=== PATIENT | female | born 1930 | race Caucasian/White ===

== ENCOUNTER 2016-02-27 13:18 | Observation (INO) | payer MEDICARE ==
[~2016-02-27] VITALS: Ht 165.1 cm; Wt 59.0 kg
[2016-02-27] VITALS (10 sets, daily range): BP systolic 164–214; BP diastolic 74–111; PULSE 47–68; RESP 17–22; TEMP 97.8–98.3; O2SAT 95–100
[~2016-02-27 13:18] MED LIST: CIPR500T4 PO; LEVO25TA36 PO; LISI10TA PO; METO25 PO
[2016-02-27] MEDS ORDERED: LEVO88TA2 PO (13:38)
[2016-02-27] MEDS ORDERED: XARE20TA PO (13:38)
[2016-02-27] MEDS ORDERED: COMB0.2S RIGHT EYE (13:38)
[2016-02-27] MEDS ORDERED: LISI10TA3 PO (13:38)
[2016-02-27] MEDS ORDERED: SODIUM CHLORIDE 0.9% FLUSH 5 ML FLUSH IVF PRN ×2 (13:45→17:30)
[2016-02-27 14:13] LABS: AUTOMATED NEUTROPHIL # 3.7 TH/MM3 (1.8-7.7); BASOPHIL # 0.1 TH/MM3 (0-0.2); BASOPHIL % 1.4 % (0.0-2.0); EOSINOPHIL # 0.2 TH/MM3 (0-0.4); HEMATOCRIT 44.8 % (35.0-46.0); HEMO FLAGS DIFF FINAL; LYMPH % 29.9 % (9.0-44.0); LYMPHOCYTE # 1.9 TH/MM3 (1.0-4.8); MEAN CELL VOLUME 90.4 FL (80.0-100.0); MEAN CORPUSCULAR HEMOGLOBIN 29.8 PG (27.0-34.0); MONO % 7.9 % (0.0-8.0); NEUT % 57.8 % (16.0-70.0); PLATELET COUNT 230 TH/MM3 (150-450); RED BLOOD COUNT 4.96 MIL/MM3 (4.00-5.30); RED CELL DISTRIBUTION WIDTH 14.6 % (11.6-17.2); WHITE BLOOD COUNT 6.5 TH/MM3 (4.0-11.0)
--- NOTE | 2016-02-27 14:14 | RADRPT ---
EXAM DATE/TIME: 02/27/2016 13:47 [facility] COMPARISON: No previous studies available for comparison. INDICATIONS : Syncope. MEDICAL HISTORY : Hypertension. A-fib. SURGICAL HISTORY : None. ENCOUNTER: Initial ACUITY: 1 day PAIN SCORE: 0/10 LOCATION: Bilateral chest FINDINGS: A single view of the chest demonstrates the lungs to be symmetrically aerated without evidence of mas s, infiltrate or effusion. The cardiomediastinal contours are unremarkable. Osseous structures are intact. CONCLUSION: No acute disease. Arian Oneal MD on February 27, 2016 at 14:13 Board Certified Radiologist. This report was verified electronically.
[2016-02-27 14:20] LABS: APTT (PATIENT) 25.3 SEC (24.3-30.1); PROTHROMBIN TIME - PATIENT 11.1 SEC (9.8-11.6)
--- NOTE | 2016-02-27 14:23 | RADRPT ---
EXAM DATE/TIME: 02/27/2016 14:09 [facility] COMPARISON: No previous studies available for comparison. INDICATIONS : Episode of slurred speech, dizziness and nausea today. RADIATION DOSE: 31.66 CTDIvol (mGy) MEDICAL HISTORY : Carcinoma, colon. Hypertension. SURGICAL HISTORY : Tonsillectomy. Hysterectomy. ENCOUNTER: Initial ACUITY: 1 day PAIN SCALE: 0/10 LOCATION: Bilateral head TECHNIQUE: Multiple contiguous axial images were obtained of the head. Using automated exposure control and adj ustment of the mA and/or kV according to patient size, radiation dose was kept as low as reasonably a chievable to obtain optimal diagnostic quality images. FINDINGS: There is mild atrophy and patchy periventricular white matter disease. No signs of intracranial hemor rhage, mass or acute infarct. No fractures. CONCLUSION: No acute disease. Arian Oneal MD on February 27, 2016 at 14:21 Board Certified Radiologist. This report was verified electronically.
[2016-02-27 14:24] LABS: ANION GAP 7 MEQ/L (5-15); AST (GOT) 10 U/L (15-37); BICARBONATE 28.2 MEQ/L (21.0-32.0); BLOOD UREA NITROGEN 13 MG/DL (7-18); CHLORIDE 106 MEQ/L (98-107); GLOMERULAR FILTRATION RATE 58 ML/MIN (>89); POTASSIUM 3.6 MEQ/L (3.5-5.1); SODIUM (NA) 141 MEQ/L (136-145)
[2016-02-27 14:41] LABS: ALKALINE PHOSPHATASE 77 U/L (45-117); ALT (GPT) 17 U/L (10-53); TOTAL BILIRUBIN ADULT 0.6 MG/DL (0.2-1.0)
[2016-02-27 14:55] LABS: CREATINE KINASE 45 U/L (26-192)
[2016-02-27] MEDS ORDERED: ASPIRIN 325 MG TAB PO ONE (15:45)
--- NOTE | 2016-02-27 15:59 | PD ---
HPI Chief Complaint: Neuro Symptoms/ Deficits Time Seen by Provider: 13:34 Travel History International Travel<30 days: No Contact w/Intl Traveler<30days: No Traveled to known affect area: No History of Present Illness HPI Patient is an 85-year-old female who presents to emergency room with complaints of possible CVA. As per patient's family and patient, patient had an episode where she had dysphagia, slurring of speech, dizziness and nausea. Patient reports that her onset of symptoms were around 11 AM, reports that her symptoms lasted for a few hours and resolve after EMS brought her to the emergency room. Patient reports that she has been feeling dizzy for the past few days. Patient reports dizziness worse with exertion and better with laying down. Patient reports that she does have history of vertigo, reports the symptoms were similar to her vertiginous symptoms in the past. Reports concerns for her dysphagia, [place] patient dizziness which started around 11 AM. Patient denies history of CVA in the past, reports concern for possible CVA. Patient denies fall or trauma to the head. Patient is on anticoagulation (xarellto) as she does have history of A. fib. PFSH Past Medical History Atrial Fibrillation: Yes Cancer: Yes (hx of colon, resolved now) High Cholesterol: Yes Hypertension: Yes Thyroid Disease: Yes Past Surgical History Abdominal Surgery: Yes (colectomy) Appendectomy: Yes Hysterectomy: Yes Tonsillectomy: Yes Family History Family History: Negative Social History Alcohol Use: Yes (wine occ) Tobacco Use: No (quit 30 years ago) Substance Use: No Allergies-Medications (Allergen,Severity, Reaction): Coded Allergies: No Known Allergies (Unverified , 02/27/16) Reported Meds & Prescriptions Reported Meds & Active Scripts Active Reported Combigan Opth Drops (Brimonidine-Timolol Opth Drops) 0.2-0.5% Soln 1 Drop RIGHT EYE Q12HR Lisinopril 10 Mg Tab 15 Mg PO DAILY Levothyroxine (Levothyroxine Sodium) 88 Mcg Tab 88 Mcg PO DAILY Xarelto (Rivaroxaban) 20 Mg Tab 20 Mg PO DAILY Review of Systems General / Constitutional: No: Fever Eyes: No: Visual changes HENT: No: Headaches Cardiovascular: No: Chest Pain or Discomfort Respiratory: No: Shortness of Breath Gastrointestinal: No: Abdominal Pain Genitourinary: No: Dysuria Musculoskeletal: No: Pain Skin: No Rash Neurologic: Positive: Dizziness, Headache, Slurred Speech, No: Weakness, Focal Abnormalities, Coordination Problem Psychiatric: No: Depression Endocrine: No: Polydipsia Hematologic/Lymphatic: No: Easy Bruising Physical Exam Narrative GENERAL: nad, nontoxic SKIN: Warm and dry. HEAD: Atraumatic. Normocephalic. EYES: Pupils equal and round. No scleral icterus. No injection or drainage. ENT: No nasal bleeding or discharge. Mucous membranes pink and moist. NECK: Trachea midline. No JVD. CARDIOVASCULAR: Regular rate and rhythm. No murmur appreciated. RESPIRATORY: No accessory muscle use. Clear to auscultation. Breath sounds equal bilaterally. GASTROINTESTINAL: Abdomen soft, non-tender, nondistended. Hepatic and splenic margins not palpable. MUSCULOSKELETAL: No obvious deformities. No clubbing. No cyanosis. No edema. NEUROLOGICAL: Awake and alert. No obvious cranial nerve deficits. Motor grossly within normal limits. Normal speech. Cranial nerves II-12 grossly intact with no obvious deficits PSYCHIATRIC: Appropriate mood and affect; insight and judgment normal. Data Data Last Documented VS Vital Signs Date Time Temp Pulse Resp B/P Pulse Ox O2 Delivery O2 Flow Rate FiO2 02/27/16 14:01 51 22 186/86 97 Room Air 02/27/16 13:30 98.3 Orders Prothrombin Time / Inr (Pt) (02/27/16 13:45) Act Partial Throm Time (Ptt) (02/27/16 13:45) Complete Blood Count With Diff (02/27/16 13:45) Comprehensive Metabolic Panel (02/27/16 13:45) Creatine Kinase (Cpk) (02/27/16 13:45) Troponin I (02/27/16 13:45) Urinalysis - C+S If Indicated (02/27/16 13:45) Ct Brain W/O Iv Contrast(Rout) (02/27/16 13:45) Chest, Single Ap (02/27/16 13:45) Ecg Monitoring (02/27/16 13:45) Iv Access Insert/Monitor (02/27/16 13:45) Oximetry (02/27/16 13:45) Blood Glucose (02/27/16 13:45) Sodium Chloride 0.9% Flush (Ns Flush) (02/27/16 13:45) Aspirin (Aspirin) (02/27/16 15:45) Labs Laboratory Tests Test 02/27/16 13:50 White Blood Count 6.5 TH/MM3 Red Blood Count 4.96 MIL/MM3 Hemoglobin 14.8 GM/DL Hematocrit 44.8 % Mean Corpuscular Volume 90.4 FL Mean Corpuscular Hemoglobin 29.8 PG Mean Corpuscular Hemoglobin 33.0 % Concent Red Cell Distribution Width 14.6 % Platelet Count 230 TH/MM3 Mean Platelet Volume 8.9 FL Neutrophils (%) (Auto) 57.8 % Lymphocytes (%) (Auto) 29.9 % Monocytes (%) (Auto) 7.9 % Eosinophils (%) (Auto) 3.0 % Basophils (%) (Auto) 1.4 % Neutrophils # (Auto) 3.7 TH/MM3 Lymphocytes # (Auto) 1.9 TH/MM3 Monocytes # (Auto) 0.5 TH/MM3 Eosinophils # (Auto) 0.2 TH/MM3 Basophils # (Auto) 0.1 TH/MM3 CBC Comment DIFF FINAL Differential Comment Prothrombin Time 11.1 SEC Prothromb Time International 1.0 RATIO Ratio Activated Partial 25.3 SEC Thromboplast Time Sodium Level 141 MEQ/L Potassium Level 3.6 MEQ/L Chloride Level 106 MEQ/L Carbon Dioxide Level 28.2 MEQ/L Anion Gap 7 MEQ/L Blood Urea Nitrogen 13 MG/DL Creatinine 0.92 MG/DL Estimat Glomerular Filtration 58 ML/MIN Rate Random Glucose 91 MG/DL Calcium Level 9.1 MG/DL Total Bilirubin 0.6 MG/DL Aspartate Amino Transf 10 U/L (AST/SGOT) Alanine Aminotransferase 17 U/L (ALT/SGPT) Alkaline Phosphatase 77 U/L Total Creatine Kinase 45 U/L Troponin I 0.02 NG/ML Total Protein 6.9 GM/DL Albumin 3.6 GM/DL [facility] Medical Decision Making Medical Screen Exam Complete: Yes Emergency Medical Condition: Yes Interpretation(s) EKG at 1335: Sinus bradycardia at 57 bpm, QT/QTc 440/433, no acute ST or T-wave changes Vital Signs Date Time Temp Pulse Resp B/P Pulse Ox O2 Delivery O2 Flow Rate FiO2 02/27/16 14:01 51 22 186/86 97 Room Air 02/27/16 13:49 97 Room Air 02/27/16 13:43 47 20 187/88 100 Room Air 02/27/16 13:30 98.3 53 18 197/93 97 Laboratory Tests Test 02/27/16 13:50 White Blood Count 6.5 TH/MM3 (4.0-11.0) Red Blood Count 4.96 MIL/MM3 (4.00-5.30) Hemoglobin 14.8 GM/DL (11.6-15.3) Hematocrit 44.8 % (35.0-46.0) Mean Corpuscular Volume 90.4 FL (80.0-100.0) Mean Corpuscular Hemoglobin 29.8 PG (27.0-34.0) Mean Corpuscular Hemoglobin 33.0 % Concent (32.0-36.0) Red Cell Distribution Width 14.6 % (11.6-17.2) Platelet Count 230 TH/MM3 (150-450) Mean Platelet Volume 8.9 FL (7.0-11.0) Neutrophils (%) (Auto) 57.8 % (16.0-70.0) Lymphocytes (%) (Auto) 29.9 % (9.0-44.0) Monocytes (%) (Auto) 7.9 % (0.0-8.0) Eosinophils (%) (Auto) 3.0 % (0.0-4.0) Basophils (%) (Auto) 1.4 % (0.0-2.0) Neutrophils # (Auto) 3.7 TH/MM3 (1.8-7.7) Lymphocytes # (Auto) 1.9 TH/MM3 (1.0-4.8) Monocytes # (Auto) 0.5 TH/MM3 (0-0.9) Eosinophils # (Auto) 0.2 TH/MM3 (0-0.4) Basophils # (Auto) 0.1 TH/MM3 (0-0.2) CBC Comment DIFF FINAL Differential Comment Prothrombin Time 11.1 SEC (9.8-11.6) Prothromb Time International 1.0 RATIO Ratio Activated Partial 25.3 SEC Thromboplast Time (24.3-30.1) Sodium Level 141 MEQ/L (136-145) Potassium Level 3.6 MEQ/L (3.5-5.1) Chloride Level 106 MEQ/L (98-107) Carbon Dioxide Level 28.2 MEQ/L (21.0-32.0) Anion Gap 7 MEQ/L (5-15) Blood Urea Nitrogen 13 MG/DL (7-18) Creatinine 0.92 MG/DL (0.50-1.00) Estimat Glomerular Filtration 58 ML/MIN (>89) Rate Random Glucose 91 MG/DL (74-106) Calcium Level 9.1 MG/DL (8.5-10.1) Total Bilirubin 0.6 MG/DL (0.2-1.0) Aspartate Amino Transf 10 U/L (15-37) (AST/SGOT) Alanine Aminotransferase 17 U/L (10-53) (ALT/SGPT) Alkaline Phosphatase 77 U/L (45-117) Total Creatine Kinase 45 U/L (26-192) Troponin I 0.02 NG/ML (0.02-0.05) Total Protein 6.9 GM/DL (6.4-8.2) Albumin 3.6 GM/DL (3.4-5.0) Differential Diagnosis CVA, TIA, intracranial hemorrhage, cardiac arrhythmia, electrolyte abnormality, ACS Narrative Course Patient is an 85-year-old female who presents to emergency room after an episode of dysarthria, speech changes or dizziness. Patient reports that her symptoms lasted a few hours and resolve on its own. Patient currently without any neurological symptoms. Patient with NIH scale of 0 IV placed, CT of the head ordered, CBC, BMP, EKG ordered for further evaluation of symptoms. Patient reevaluated, patient with complete resolution of symptoms. Patient with a repeat neurological exam, and I scale of 0 with no neuro deficits. Reviewed all labs and all studies with patient as well as her daughter. Patient with most likely TIA. We'll observation for TIA workup. Physician Communication Physician Communication Case reviewed with Dr. Middleton who accepts pt to service Diagnosis Primary Impression: TIA (transient ischemic attack) Qualified Code: G45.9 - Transient cerebral ischemia, unspecified type Admitting Information Admitting Physician Requests: Observation Norah Rodriguez DO Feb 27, 2016 15:59
--- NOTE | 2016-02-27 17:26 | HHI.HP ---
[facility] Service [facility] Primary Care Physician No Primary Care Physician Admission Diagnosis TIA Diagnoses: (1) TIA (transient ischemic attack) Chief Complaint: Difficulty finding words Travel History International Travel<30 Days: No Contact w/Intl Traveler <30 Da: No Traveled to Known Affected Are: No History of Present Illness 85-year-old female with a history of atrial fibrillation was brought to the ED for evaluation of slurring of speech, difficulty finding words along with dizziness and nausea. Patient was in her usual state when around 11 AM this morning she had onset of those symptoms which EMS was called and patient was brought in the ED. On arrival in the ED patient's symptoms resolved she was able to speak clearly without any difficulty and she has no other focal neural deficits. Head CT in the ED was negative. She denies any trauma. She has a history of atrial fibrillation for which she is on Xarelto Review of Systems Other Other 12 systems reviewed and are negative except for the one mentioned in the history of present illness Past Family Social History Past Medical History Atrial Fibrillation: Yes Cancer: Yes (hx of colon, resolved now) High Cholesterol: Yes Hypertension: Yes Hypothyroidism Past Surgical History Past Surgical History Abdominal Surgery: Yes (colectomy) Appendectomy: Yes Hysterectomy: Yes Tonsillectomy: Yes Reported Medications Combigan Opth Drops (Brimonidine-Timolol Opth Drops) 0.2-0.5% Soln 1 Drop RIGHT EYE Q12HR Lisinopril 10 Mg Tab 15 Mg PO DAILY Levothyroxine (Levothyroxine Sodium) 88 Mcg Tab 88 Mcg PO DAILY Xarelto (Rivaroxaban) 20 Mg Tab 20 Mg PO DAILY Allergies: Coded Allergies: No Known Allergies (Unverified , 02/27/16) Family History Family history positive for heart disease, atrial fibrillation Social History Alcohol Use: Yes (wine occ) Tobacco Use: No (quit 30 years ago) Substance Use: No Physical Exam Vital Signs Vital Signs Date Time Temp Pulse Resp B/P Pulse Ox O2 Delivery O2 Flow Rate FiO2 02/27/16 17:04 52 20 214/98 97 Room Air 02/27/16 14:01 51 22 186/86 97 Room Air 02/27/16 13:49 97 Room Air 02/27/16 13:43 47 20 187/88 100 Room Air 02/27/16 13:30 98.3 53 18 197/93 97 Physical Exam GENERAL: This is a well-nourished, well-developed patient, in no apparent distress. SKIN: No rashes, ecchymoses or lesions. Cool and dry. HEAD: Atraumatic. Normocephalic. No temporal or scalp tenderness. EYES: Pupils equal round and reactive. Extraocular motions intact. No scleral icterus. No injection or drainage. ENT: Nose without bleeding, purulent drainage or septal hematoma. Throat without erythema, tonsillar hypertrophy or exudate. Uvula midline. Airway patent. NECK: Trachea midline. No JVD or lymphadenopathy. Supple, nontender, no meningeal signs. CARDIOVASCULAR: Regular rate and rhythm without murmurs, gallops, or rubs. RESPIRATORY: Clear to auscultation. Breath sounds equal bilaterally. No wheezes , rales, or rhonchi. GASTROINTESTINAL: Abdomen soft, non-tender, nondistended. No hepato-splenomegaly , or palpable masses. No guarding. MUSCULOSKELETAL: Extremities without clubbing, cyanosis, or edema. No joint tenderness, effusion, or edema noted. No calf tenderness. Negative Homans sign bilaterally. NEUROLOGICAL: Awake and alert. Cranial nerves II through XII intact. Motor and sensory grossly within normal limits. Five out of 5 muscle strength in all muscle groups. Normal speech. Laboratory Laboratory Tests Test 02/27/16 13:50 White Blood Count 6.5 Red Blood Count 4.96 Hemoglobin 14.8 Hematocrit 44.8 Mean Corpuscular Volume 90.4 Mean Corpuscular Hemoglobin 29.8 Mean Corpuscular Hemoglobin 33.0 Concent Red Cell Distribution Width 14.6 Platelet Count 230 Mean Platelet Volume 8.9 Neutrophils (%) (Auto) 57.8 Lymphocytes (%) (Auto) 29.9 Monocytes (%) (Auto) 7.9 Eosinophils (%) (Auto) 3.0 Basophils (%) (Auto) 1.4 Neutrophils # (Auto) 3.7 Lymphocytes # (Auto) 1.9 Monocytes # (Auto) 0.5 Eosinophils # (Auto) 0.2 Basophils # (Auto) 0.1 CBC Comment DIFF FINAL Differential Comment Prothrombin Time 11.1 Prothromb Time International 1.0 Ratio Activated Partial 25.3 Thromboplast Time Sodium Level 141 Potassium Level 3.6 Chloride Level 106 Carbon Dioxide Level 28.2 Anion Gap 7 Blood Urea Nitrogen 13 Creatinine 0.92 Estimat Glomerular Filtration 58 Rate Random Glucose 91 Calcium Level 9.1 Total Bilirubin 0.6 Aspartate Amino Transf 10 (AST/SGOT) Alanine Aminotransferase 17 (ALT/SGPT) Alkaline Phosphatase 77 Total Creatine Kinase 45 Troponin I 0.02 Total Protein 6.9 Albumin 3.6 Result Diagram: 02/27/16 1350 02/27/16 1350 Assessment and Plan Problem List: (1) TIA (transient ischemic attack) ICD Code: G45.9 Status: Acute Assessment and Plan 85-year-old female with TIA: Treatment per stroke protocol -Continue with aspirin -Start statin therapy after LFTs monitored -NIHSS, Neuro checks, Monitor on telemetry -PT/OT/ST evaluations, consult rehab medicine -allow permissive HTN, IV Vasotec and IV labetalol if SBP >200/100 -Check lipid profile and HgbA1c -Check carotid U/S -Head CT 02/24/16 noted and review by me and read as negative -Check brain MRI/MRA -Check echocardiogram -Consider Neurology consultation History of hypertension: We will allow for permissive hypertension Hypothyroidism: Resume Synthroid in a.m. DVT prophylaxis: Bilateral SCDs Code Status Full code Discussed Condition With Patient, Daughter, ED physician Problem Qualifiers (1) TIA (transient ischemic attack): Qualified Code: G45.9 - Transient cerebral ischemia, unspecified type Quang Middleton MD Feb 27, 2016 17:26
[2016-02-27] MEDS ORDERED: DEXTROSE 50% IN WATER 50 ML VIAL(D50) IV PUSH PRN (17:30)
[2016-02-27] MEDS ORDERED: GLUCAGON 1 MG/ML VIAL IM/SQ PRN (17:30)
[2016-02-27] MEDS ORDERED: ENALAPRILAT 2.5 MG/2 ML VIAL IV PUSH PRN (17:30)
[2016-02-27] MEDS ORDERED: PT:COMBIGAN OPTH SOL RIGHT EYE SCH ×2 (17:45→21:00)
[2016-02-27 19:49] LABS: HEMOGLOBIN A1a 1.1 %; HEMOGLOBIN F 0.9 %; HEMOGLOBIN LA1C 1.9 %; HEMOGLOBIN P3 3.6 %
[2016-02-27] MEDS: INSULIN ASPART SUPPLEMENTAL SCALE SQ SCH (21:00)
[2016-02-27] MEDS ORDERED: PRAVASTATIN SOD 40 MG TAB PO SCH (21:00)
[2016-02-27] MEDS ORDERED: NON-FORMULARY DRUG (Brimonidine-Timolol Opth Drops (Combigan Opth Drops) 1 DROP) RIGHT EYE SCH (21:00)
[2016-02-27] MEDS: SODIUM CHLORIDE 0.9% FLUSH 5 ML FLUSH IVF SCH (21:08)
--- NOTE | 2016-02-27 21:08 | RADRPT ---
EXAM DATE/TIME: 02/27/2016 17:54 [facility] COMPARISON: No previous studies available for comparison. INDICATIONS : Cerebrovascular accident. MEDICAL HISTORY : Hypercholesterolemia. Hypertension. Thyroid disease. Afib. Colon cancer. SURGICAL HISTORY : Appendectomy. Hysterectomy. Tonsillectomy. Colectomy. ENCOUNTER: Initial ACUITY: 1 day PAIN SCORE: 0/10 LOCATION: Bilateral neck PEAK SYSTOLIC VELOCITIES (cm/sec): ICA/CCA RATIO: Right: 1.6 Left: 1.8 ICA: Right: 92 Left: 104 CCA: Right: 59 Left: 57 ECA: Right: 63 Left: 44 VERTEBRAL: Right: 53 antegrade Left: 31 antegrade Elevated flow velocities and ICA/CCA ratios have been found to correlate with increased degrees of vessel stenosis, calculated as percentage of diameter relative to a normal segment of distal ICA/CCA FINDINGS: RIGHT CAROTID: There is mild calcified plaque at the bulb and proximal internal carotid artery. LEFT CAROTID: Mild noncalcified plaque of the bulb and proximal internal carotid artery. VERTEBRAL ARTERIES: Antegrade flow is seen in both vertebral arteries. MISCELLANEOUS: None. CONCLUSION: Mild bilateral bifurcation atherosclerosis as above. No hemodynamically significant narrowing. Efrain Mas MD on February 27, 2016 at 21:06 Board Certified Radiologist. This report was verified electronically.
[2016-02-28 00:14] VITALS: BP 171/73; PULSE 55; RESP 20; TEMP 97.5; O2SAT 93
[2016-02-28 02:45] VITALS: BP 182/81; PULSE 66; RESP 20; TEMP 98; O2SAT 93; O2SAT 96
[2016-02-28 04:45] VITALS: BP 158/72; PULSE 67; RESP 20; TEMP 97.8; O2SAT 95
[2016-02-28] MEDS: INSULIN ASPART SUPPLEMENTAL SCALE SQ SCH ×2 (05:24→11:00)
[2016-02-28] MEDS ORDERED: LEVOTHYROXINE SODIUM 88 MCG TAB PO SCH (06:00)
[2016-02-28 06:47] VITALS: BP 159/81; PULSE 58; RESP 20; TEMP 98; O2SAT 96
[2016-02-28 08:48] LABS: AUTOMATED NEUTROPHIL # 6.6 TH/MM3 (1.8-7.7); BASOPHIL # 0.1 TH/MM3 (0-0.2); BASOPHIL % 0.5 % (0.0-2.0); EOSINOPHIL # 0.2 TH/MM3 (0-0.4); EOSINOPHIL % 2.5 % (0.0-4.0); HEMATOCRIT 39.8 % (35.0-46.0); HEMO FLAGS DIFF FINAL; LYMPH % 23.2 % (9.0-44.0); LYMPHOCYTE # 2.3 TH/MM3 (1.0-4.8); MEAN CELL VOLUME 89.3 FL (80.0-100.0); MEAN CORPUSCULAR HEMOGLOBIN 29.8 PG (27.0-34.0); MEAN CORPUSCULAR HGB CONC 33.3 % (32.0-36.0); MONO % 8.5 % (0.0-8.0); NEUT % 65.3 % (16.0-70.0); PLATELET COUNT 213 TH/MM3 (150-450); RED BLOOD COUNT 4.46 MIL/MM3 (4.00-5.30); RED CELL DISTRIBUTION WIDTH 14.4 % (11.6-17.2); WHITE BLOOD COUNT 10.1 TH/MM3 (4.0-11.0)
[2016-02-28 08:51] LABS: BICARBONATE 26.4 MEQ/L (21.0-32.0); POTASSIUM 3.3 MEQ/L (3.5-5.1)
[2016-02-28] MEDS ORDERED: ASPIRIN 81 MG CHEW TAB PO SCH (09:00)
[2016-02-28] MEDS ORDERED: PANTOPRAZOLE SOD 40 MG DELAYED RELEASE TAB PO SCH (09:00)
--- NOTE | 2016-02-28 09:08 | RADRPT ---
EXAM DATE/TIME: 02/28/2016 08:25 [facility] COMPARISON: CT BRAIN W/O CONTRAST, February 27, 2016, 14:09. INDICATIONS : Dizziness. MEDICAL HISTORY : Hypertension. Carcinoma, colon. SURGICAL HISTORY : Colon resection. Tonsillectomy. Appendectomy. ENCOUNTER: Subsequent ACUITY: 3 day PAIN SCORE: 0/10 LOCATION: cranial TECHNIQUE: Multiplanar, multisequence MRI of the brain was performed without contrast. FINDINGS: CEREBRUM: The ventricles are normal for age. There is bilateral cortical atrophy and chronic white matter kincaid ges. No evidence of midline shift, mass lesion, hemorrhage or acute infarction. No extraaxial fluid collections are seen. The pituitary gland and suprasellar cistern are normal in configuration. WHITE MATTER: No significant signal abnormalities are seen in the white matter. A few high signal spots are seen bi laterally characteristic of ischemic demyelinization. This correlates with patient's age. POSTERIOR FOSSA: The cerebellum and brainstem are intact. The 4th ventricle is midline. The cerebellopontine angle is unremarkable. The cerebellar tonsils are normal in position. DIFFUSION IMAGING: No focal areas of restricted diffusion are seen. No evidence of acute infarction. EXTRACRANIAL: The visualized portions of the orbits and paranasal sinuses are unremarkable. CONCLUSION: 1. Bilateral cortical atrophy and chronic bilateral white matter changes. 2. Otherwise, unremarkable exam for patient's age. Jules Huynh MD on February 28, 2016 at 9:04 Board Certified Radiologist. This report was verified electronically.
--- NOTE | 2016-02-28 09:09 | RADRPT ---
EXAM DATE/TIME: 02/28/2016 08:25 [facility] COMPARISON: No previous studies available for comparison. INDICATIONS : Dizziness. MEDICAL HISTORY : Hypertension. Carcinoma, colon. SURGICAL HISTORY : Appendectomy. Tonsillectomy. Colon resection. ENCOUNTER: Subsequent ACUITY: 3 day PAIN SCORE: 0/10 LOCATION: cranial Please note a normal MRA of the brain does not entirely exclude the possibility of a small aneurysm, nor the possibility of distal intracranial vessel disease. TECHNIQUE: 3D time of flight MRA was performed. Source images, multiplanar STS MIP, and 3D volume MIP reconstru ctions were reviewed. FINDINGS: There is excellent visualization of the major intracranial arteries out to the second-order branch ve ssels. There is no evidence for aneurysm, vessel truncation or stenosis, and no evidence for vascula r malformation. CONCLUSION: Unremarkable MRA of the brain Jules Huynh MD on February 28, 2016 at 9:06 Board Certified Radiologist. This report was verified electronically.
[2016-02-28] MEDS: SODIUM CHLORIDE 0.9% FLUSH 5 ML FLUSH IVF SCH (10:17)
--- NOTE | 2016-02-28 11:26 | MB ---
cc: HEIDE FRANCISCO M.D. DATE OF CONSULTATION 02/28/2016 DATE OF 1930 REASON FOR CONSULTATIONS TIA HISTORY The patient is an 85-year-old woman with a history of atrial fibrillation, brought in because of slurring of speech, trouble finding words, some dizziness, nausea, no loss of consciousness. This happened about 8 o'clock in the morning. She was brought in via [facility]. By the time she came in, she was resolves. She was back to baseline. She had a CT of the head that was negative and has a history of atrial fibrillation on Xarelto. Also a history of hypertension, history of colon cancer, hyperlipidemia, hypothyroidism. MEDICATIONS Home medicines are: 1. Combigan 2. Lisinopril 3. Levothyroxine 4. Xarelto ALLERGIES None reported. FAMILY HISTORY Heart disease, A fib. SOCIAL HISTORY Occasional wine. No tobacco, no substance abuse. PHYSICAL EXAM On exam, vitals temperature 98, pulse 58, respiratory rate 20, blood pressure 159/81. NECK: Supple. No appreciable carotid bruits. HEART: Currently is regular. LUNGS: Clear. NEUROLOGIC: She is awake and alert. She is oriented. She is fluent. Her pupils are reactive. Visual alvarez full. Face symmetrical. Tongue midline. Motor, there are no significant findings to suggest drift or leg lag. Cerebellar testing is normal. Toes are downgoing. Sensory is normal. Reflexes 2-3+. Gait is withheld, deferred to PT. LABS Reviewed, cholesterol is 178, triglycerides 93, LDL 84, HDL 75. IMAGING STUDIES MRI of the brain did not yield any acute stroke. MRA [place] unremarkable for intracranial disease, carotid ultrasound was negative as well. IMPRESSION TIA in an 85-year-old woman with a history of atrial fibrillation currently on Xarelto. RECOMMENDATIONS At this point, complete her workup, get an echocardiogram, have physical therapy get her out of bed, add a baby aspirin to her regimen of Xarelto at this point in time. She is back to baseline. If she is stable, she certainly can be discharged home. She is supposed to go back to, I believe [place], with a daughter and they can follow up the echo results at the other facility where she is going to. Continue her home medications. Continue her statin. Blood pressure currently is a little bit high, I would slowly lower that, however. SCD's at this point in time. Lovenox which she is already on. Anticoagulation. Continue current care. Anticipate discharge likely later this afternoon if there are no other issues. Of note, baseline, she ambulates with a walker and cane so she has baseline deficits with gait. MD RAMA Long/ALFONSO /10:51 AM /11:18 AM
--- NOTE | 2016-02-28 11:28 | HHI.PR ---
Subjective Remarks Follow-up TIA 02/28/16-patient seen and examined; no speech difficulty and remains stable since admission. Objective Vitals Vital Signs Date Time Temp Pulse Resp B/P Pulse Ox O2 Delivery O2 Flow Rate FiO2 02/28/16 06:47 98.0 58 20 159/81 96 02/28/16 04:45 97.8 67 20 158/72 95 02/28/16 02:45 98.0 66 20 182/81 96 02/28/16 00:14 97.5 55 20 171/73 93 02/27/16 22:13 98.3 54 20 164/74 96 02/27/16 21:00 60 02/27/16 19:50 97.8 68 20 186/79 95 183/89 193/111 02/27/16 18:55 54 17 194/90 98 Room Air 02/27/16 18:50 55 22 198/88 98 Room Air 02/27/16 17:04 52 20 214/98 97 Room Air 02/27/16 14:01 51 22 186/86 97 Room Air 02/27/16 13:49 97 Room Air 02/27/16 13:43 47 20 187/88 100 Room Air 02/27/16 13:30 98.3 53 18 197/93 97 I/O 02/27/16 02/27/16 02/27/16 02/28/16 02/28/16 02/28/16 07:00 15:00 23:00 07:00 15:00 23:00 Intake Total 210 ml Balance 210 ml Intake Oral 210 ml # Voids 2 Result Diagram: 02/28/16 0748 02/28/16 0748 Imaging Last Impressions Head CT 02/27/16 1345 Signed Impressions: Service Date/Time: Saturday, February 27, 2016 14:09 - CONCLUSION: No acute disease. Arian Oneal MD Chest X-Ray 02/27/16 1345 Signed Impressions: Service Date/Time: Saturday, February 27, 2016 13:47 - CONCLUSION: No acute disease. Arian Oneal MD Carotid Artery Ultrasound 02/27/16 0000 Signed Impressions: Service Date/Time: Saturday, February 27, 2016 17:54 - CONCLUSION: Mild bilateral bifurcation atherosclerosis as above. No hemodynamically significant narrowing. Efrain Mas MD Objective Remarks GENERAL: NAD SKIN: Warm and dry. HEAD: Normocephalic. EYES: No scleral icterus. No injection or drainage. NECK: Supple, trachea midline. No JVD or lymphadenopathy. CARDIOVASCULAR: Regular rate and rhythm without murmurs, gallops, or rubs. RESPIRATORY: Breath sounds equal bilaterally. No accessory muscle use. GASTROINTESTINAL: Abdomen soft, non-tender, nondistended. MUSCULOSKELETAL: No cyanosis, or edema. BACK: Nontender without obvious deformity. No CVA tenderness. A/P Problem List: (1) TIA (transient ischemic attack) ICD Code: G45.9 Status: Resolved Assessment and Plan 85-year-old female with TIA: Treatment per stroke protocol -Continue with aspirin -Continue statin -NIHSS, Neuro checks, Monitor on telemetry -PT/OT/ST evaluations -allow permissive HTN, IV Vasotec and IV labetalol if SBP >200/100 -Carotid U/S noted and reviewed and negative -Head CT 02/24/16 noted and review by me and read as negative -Brain MRI/MRA noted and reviewed by me all negative -Echocardiogram pending -Appreciate input from Neurology History of hypertension: d/c permissive hypertension and resume lisinopril Hypothyroidism: on Synthroid . DVT prophylaxis: Bilateral SCDs Likely discharge after 2-D echo performed and resulted Discharge Planning Discharge patient to home Condition on discharge: Improved Regular Diet as tolerated Ad Kristy activity Rx written: see EMR Follow-up with primary care physician in 1 week Neurology 1-2 weeks Problem Qualifiers (1) TIA (transient ischemic attack): Qualified Code: G45.9 - Transient cerebral ischemia, unspecified type Quang Middleton MD Feb 28, 2016 11:28
[2016-02-28] MEDS ORDERED: LISINOPRIL 10 MG TAB PO SCH (11:30)
[2016-02-28] MEDS ORDERED: PILL SPLITTER OTHER PRN (11:45)
[2016-02-28 12:29] VITALS: BP 188/77; PULSE 64; RESP 20; TEMP 97.8; O2SAT 95
[2016-02-28] MEDS ORDERED: PRAV40TA PO (14:51)
[2016-02-28] MEDS ORDERED: ASPI81TA11 PO (14:51)
--- NOTE | 2016-02-28 19:02 | EC ---
Study Study Date:02/28/2016 STUDY CONCLUSIONS SUMMARY LEFT VENTRICLE: The cavity size was normal. Systolic function was normal. The estimated ejection fraction was in the range of 55% to 60%. Wall motion was normal; there were no regional wall motion abnormalities. Doppler parameters are consistent with abnormal left ventricular relaxation (grade 1 diastolic dysfunction). If LV function is below 40, please consider prescribing an ACEI or ARB or document rationale for non-use. PROCEDURE DATA STUDY STATUS: Elective. Procedure: Transthoracic echocardiography. Image quality was good. Scanning was performed from the parasternal, apical, and subcostal acoustic windows. Study completion: The patient tolerated the procedure well. Transthoracic echocardiography. M-mode, complete 2D, complete spectral Doppler, and color Doppler. Patient status: Inpatient. CARDIAC ANATOMY LEFT VENTRICLE: The cavity size was normal. Systolic function was normal. The estimated ejection fraction was in the range of 55% to 60%. Wall motion was normal; there were no regional wall motion abnormalities. Doppler parameters are consistent with abnormal left ventricular relaxation (grade 1 diastolic dysfunction). AORTIC VALVE: The valve appears to be grossly normal. Doppler: There was no stenosis. No significant regurgitation. MITRAL VALVE: The valve appears to be grossly normal. Doppler: There was no evidence for stenosis. Trace regurgitation. LEFT ATRIUM: The atrium was normal in size. PULMONIC VALVE: Not well visualized. Doppler: There was no evidence for stenosis. No significant regurgitation. TRICUSPID VALVE: The valve appears to be grossly normal. Doppler: There was no evidence for stenosis. Trace regurgitation. PERICARDIUM: There was no pericardial effusion. Prepared and signed by Vinny Ruiz [id number]
--- NOTE | 2016-02-29 | EKG ---
Date Performed: 02/27/2016 Time Performed: 13:35:13 PTAGE: 85 years EKG: SINUS BRADYCARDIA WITH SINUS ARRHYTHMIA BORDERLINE ECG NO PREVIOUS TRACING DOCTOR: Adán Borja Interpretating Date/Time 02/28/2016 23:51:20
[2016-02-29] MEDS ORDERED: RIVAROXABAN 20 MG TAB PO SCH (09:00)
== END 2016-02-28 16:17 | disposition home or self-care (01) ==
LOC: NEPA 13:18 → NEDH 16:04 → NEPHCDU 19:55
PROVIDERS: ADMIT Hospitalist; ATTEND Hospitalist
DX: G45.9 Transient cerebral ischemic attack, unspecified (principal); R47.81 Slurred speech; R42 Dizziness and giddiness; R11.0 Nausea; Z79.01 Long term (current) use of anticoagulants; I48.91 Unspecified atrial fibrillation; E78.00 Pure hypercholesterolemia, unspecified; I10 Essential (primary) hypertension; Z79.899 Other long term (current) drug therapy; R00.1 Bradycardia, unspecified; E03.9 Hypothyroidism, unspecified; Z85.038 Personal history of other malignant neoplasm of large intestine; E78.5 Hyperlipidemia, unspecified
CPT/HCPCS: 70450; 70544; 70551; 71010; 80048; 80053; 80061; 82550; 82948; 83036; 84484; 85025; 85610; 85730; 93005; 93306; 93880; 97163; 97165; 99285; G0378; G8987; G8988; G8989